=== PATIENT | male | born 1940 | race Caucasian/White ===

== ENCOUNTER 2017-07-10 16:49 | Inpatient (IN) | payer MEDICARE, BC, OTHER ==
[~2017-07-10] VITALS: Ht 172.7 cm; Wt 81.1 kg
[2017-07-11 13:16] VITALS: BP 124/65; PULSE 93; TEMP 98.4
[2017-07-11] MEDS ORDERED: HCTZ 25MG TAB25 MG PO (15:13)
[2017-07-11] MEDS ORDERED: ZETIA 10MG TAB10 MG PO (15:14)
[2017-07-11] MEDS ORDERED: ALTACE 10MG TAB10 MG PO (15:14)
[2017-07-11] MEDS ORDERED: FARXIGA5 PO (15:15)
[2017-07-11] MEDS ORDERED: CADUET 10 MG-401 TAB PO (15:16)
[2017-07-11] MEDS ORDERED: ACTOS 15MG TAB15 MG PO (15:17)
[2017-07-11] MEDS ORDERED: ACTOPLUS MET 851 TAB PO (15:17)
[2017-07-11 16:00] VITALS: BP 124/65; PULSE 93; TEMP 98.4
[2017-07-12 05:30] VITALS: BP 117/65; PULSE 78; TEMP 97.9
[2017-07-12 17:58] VITALS: BP 131/56; PULSE 91; TEMP 97.5
[2017-07-13 04:39] VITALS: BP 121/56; PULSE 74; TEMP 98.1
[2017-07-13 04:52] VITALS: BP 121/56; PULSE 74; TEMP 98.1
[2017-07-13 18:20] VITALS: BP 113/56; PULSE 103; TEMP 98.3
[2017-07-14 04:10] VITALS: BP 119/60; PULSE 75; TEMP 97.7
[2017-07-14 16:00] VITALS: BP 122/56; PULSE 85; TEMP 97.6
[2017-07-15 17:23] VITALS: BP 115/60; PULSE 79; TEMP 98.4
[2017-07-16 05:37] VITALS: BP 130/51; PULSE 73; TEMP 98.1
[2017-07-16 15:27] VITALS: BP 125/65; PULSE 89; TEMP 98.7
[2017-07-17 03:49] VITALS: BP 129/59; PULSE 78; TEMP 98.1
[2017-07-17 16:26] VITALS: BP 113/56; PULSE 91; TEMP 98.6
[2017-07-17] MEDS ORDERED: PLAVIX 75MG TAB75 MG PO (19:03)
[2017-07-17] MEDS ORDERED: LIPITOR 40MG TA40 MG PO (19:04)
[2017-07-18 06:11] VITALS: BP 130/64; PULSE 80; TEMP 98
== END 2017-07-18 11:15 | disposition home health service (06) | DRG 57 ==
DX: I69.351 Hemiplegia and hemiparesis following cerebral infarction affecting right dominant side (principal); I69.320 Aphasia following cerebral infarction; I69.398 Other sequelae of cerebral infarction; I69.393 Ataxia following cerebral infarction; H53.9 Unspecified visual disturbance; E11.9 Type 2 diabetes mellitus without complications; I10 Essential (primary) hypertension; Z87.891 Personal history of nicotine dependence
CPT/HCPCS: 99222-AI; 99232-AI; 99239; J1815